=== PATIENT | female | born 1985 | race African-American/Black ===

== ENCOUNTER 2021-05-28 18:55 | Emergency (ER) | payer MEDICAID ==
[~2021-05-28] VITALS: Ht 162.6 cm; Wt 106.0 kg
[~2021-05-28 18:55] MED LIST: CEPH500C2 MT; IBUP-2029 MT
[2021-05-28 19:13] VITALS: BP 145/78
== END 2021-05-29 00:19 | disposition left against medical advice (07) ==
LOC: ER 18:55
DX: Z53.21 Procedure and treatment not carried out due to patient leaving prior to being seen by health care provider (principal)

== ENCOUNTER 2021-08-12 20:36 | Emergency (ER) | payer MEDICAID ==
[~2021-08-12] VITALS: Ht 162.6 cm; Wt 105.0 kg
[2021-08-12] MEDS ORDERED: ONDANSETRON HCL 4MG/2ML INJ IV STA (22:36)
[2021-08-12] MEDS ORDERED: MORPHINE SULFATE 4 MG/ML CPJ (NOT FOR IM USE) IV STA (22:36)
[2021-08-12] MEDS ORDERED: ACETAMINOPHEN 325MG TABLET PO STA (22:36)
[2021-08-12 23:34] LABS: BASOPHILS % 0.8 % (0.0-2.0); EOSINOPHILS % 1.5 % (0.0-5.0); HEMATOCRIT. 34.6 % (36.0-48.0); HEMOGLOBIN. 11.7 g/dL (12.0-16.0); LYMPHOCYTES % 35.4 % (20.0-50.0); MEAN CORPUSCULAR HEMOGLOBIN 28.4 pg (28.0-32.0); MEAN CORPUSCULAR VOLUME 83.9 fL (81.0-99.0); MEAN PLATELET VOLUME 8.9 fl (7.4-10.4); MONOCYTES % 3.9 % (2.0-8.0); NEUTROPHILS % 58.4 % (40.0-76.0); PLATELET 244 x1000/uL (130-400); RED BLOOD CELL COUNT 4.13 mill/uL (4.2-5.4); RED CELL DISTRIBUTION WIDTH 13.3 % (11.6-14.6)
[2021-08-12 23:38] LABS: CHLORIDE 108 mEq/L (98-107)
[2021-08-12 23:54] LABS: HCG SCREEN NEGATIVE
[2021-08-13] MEDS ORDERED: KETOROLAC 60MG/2ML VIAL IM ONE (01:00)
[2021-08-13] MEDS ORDERED: CEFTRIAXONE SODIUM 500 MG/VIAL IM ONE (02:15)
[2021-08-13] MEDS ORDERED: LIDOCAINE HCL/PF 1% 10 MG/ML 5ML VIAL INFIL ONE (02:15)
[2021-08-13] MEDS ORDERED: LIDOCAINE HCL 1% 20ML VIAL (Pyxis) INJ INFIL SCH (02:30)
[2021-08-13 02:35] LABS: CLARITY URINE TURBID (CLEAR); COLOR URINE YELLOW (YELLOW); KETONES URINE 1+ (NEGATIVE); LEUKOCYTE ESTERASE URINE 2+ (NEGATIVE); NITRITE URINE NEGATIVE (NEGATIVE); OCCULT BLOOD URINE 2+ (NEGATIVE); PH URINE 5.5 (4.5-8.0); PROTEIN URINE 2+ (NEGATIVE); SPECIFIC GRAVITY URINE 1.027 (1.005-1.030); UROBILINOGEN URINE 0.2 E.U./dL (0.2-1.0)
[2021-08-13] MEDS ORDERED: DOXY100C5 MT (02:52)
[2021-08-13] MEDS ORDERED: NITR100C MT (02:52)
[2021-08-13] MEDS ORDERED: METR-167 MT (02:52)
[2021-08-13 03:30] VITALS: BP 141/81
[2021-08-15 04:07] LABS: NEISSERIA GONORRHOEAE NAA Negative (Negative)
== END 2021-08-13 04:07 | disposition home or self-care (01) ==
LOC: ER 20:43
DX: N39.0 Urinary tract infection, site not specified (principal); R11.2 Nausea with vomiting, unspecified; J45.909 Unspecified asthma, uncomplicated; Z98.890 Other specified postprocedural states; Z79.899 Other long term (current) drug therapy
CPT/HCPCS: 36415; 76830; 76856; 80053; 81003; 83690; 84703; 85025; 87086; 87210; 87491; 87591; 96372; 99284; J0696; J1885; J3490